=== PATIENT | male | born 2000 | race Caucasian/White ===

== ENCOUNTER 2020-03-25 16:11 | Emergency (ER) | payer MEDICAID ==
[~2020-03-25] VITALS: Ht 177.8 cm; Wt 63.5 kg
[2020-03-25 16:11] VITALS: BP_SYST 114
--- NOTE | 2020-03-25 16:11 | NUR ---
Patient to ER surge tent to gown for evaluation. Side rails up. Report given to JOSSIE Adams.
--- NOTE | 2020-03-25 16:12 | NUR ---
Patient came from home for evaluation of flu-like symptoms. Patient reports he has been hanging out with his girlfriend's cousin who has tested positive for COVID-19. He is complaining of bodyaches and headache.
--- NOTE | 2020-03-25 16:45 | NUR ---
ER in tent examining patient.
[2020-03-25 17:13] VITALS: BP_SYST 114
--- NOTE | 2020-03-25 17:13 | NUR ---
Patient given written and verbal discharge instructions and verbalizes understanding. ER MD discussed with patient the results and treatment provided. Patient in stable condition. ID arm band removed. Patient educated on pain management and to follow up with PMD. Pain Scale 0/10. Opportunity for questions provided and answered. Medication side effect fact sheet provided.
== END 2020-03-25 17:13 | disposition home or self-care (01) ==
LOC: SED 16:11
DX: J02.9 Acute pharyngitis, unspecified (principal); Z20.828 Contact with and (suspected) exposure to other viral communicable diseases
CPT/HCPCS: 99283; U0003; C9803-CS